=== PATIENT | male | born 1965 | race Caucasian/White ===

== ENCOUNTER 2022-06-08 09:16 | Day surgery (SDC) | payer MEDICARE, MEDICAID, SELFPAY ==
[2022-04-13 14:18] VITALS: BMI 34.2
[2022-05-05 13:59] VITALS: BMI 32.8
--- NOTE | 2022-06-07 14:06 | HO.ANESPROP2 ---
Documented by User: Malena Campa NP 06/07/22 14:07 HPI - Anesthesia Eval Consult details Narrative: 57yo M for Left AV Fistula Creation ESRD with HD PRN opioids Currently in rehab for LE fracture/falls PMFSH Past Medical History Medical History (Updated 06/07/22 @ 09:02 by Diane Jean, RN) Amputation of left great toe Anxiety and depression Arthritis Chronic diastolic heart failure with preserved ejection fraction Dialysis patient ESRD (end stage renal disease) on dialysis GERD (gastroesophageal reflux disease) Gout History of blood transfusion History of lower leg fracture HTN (hypertension) Hypothyroidism Low back pain STEPHAN (obstructive sleep apnea) Peripheral neuropathy Personal history of COVID-19 Rheumatoid arthritis Type 2 diabetes mellitus Surgical History Surgical History (Updated 04/13/22 @ 14:12 by Poly Zavala RN) History of bilateral carpal tunnel release Hx of colonoscopy Hx of elbow surgery Social History Social History Are you a primary adult care manager to a significant other at home: No Patient Tobacco Use Status: Former Tobacco user Quit Date: 1996 Tobacco use type: Cigarette Have you been hit, kicked, punched, or otherwise hurt by someone within the past year? If so, by whom?: No Are you DNR?: No Advance Directives: No (will bring dos) Advance Directives Information Provided: Yes Advance Directives on File: No Recently lost weight without trying: No Meds Allergies Allergy/AdvReac Type Severity Reaction Status Date / Time albuterol Allergy Severe Hives Verified 04/13/22 14:15 allopurinol Allergy Unknown Verified 05/05/22 13:45 liraglutide [From Victoza] AdvReac Intermediate Diarrhea Verified 04/13/22 14:15 Home Medications Medication Instructions Recorded Confirmed Last Taken Type Humalog U-100 Insulin subcut TIDAC 04/12/22 Unknown History Lidocaine Pain Relief 04/12/22 Unknown History acetaminophen 325 mg tablet 650 mg PO Q6H PRN Pain 04/12/22 04/12/22 Unknown History aspirin 81 mg chewable tablet 81 mg PO DAILY 04/12/22 04/12/22 Unknown History carvedilol 3.125 mg tablet 3.125 mg PO BID 04/12/22 05/05/22 06/08/22 History cholecalciferol (vitamin D3) 25 25 mcg PO DAILY 04/12/22 04/12/22 Unknown History mcg (1,000 unit) capsule (Vitamin D3) dextrose 40 % oral gel (Glutose-15) PO 04/12/22 Unknown History escitalopram oxalate 10 mg tablet 10 mg PO DAILY 04/12/22 04/12/22 06/08/22 History (Lexapro) febuxostat 40 mg tablet 40 mg PO BEDTIME 04/12/22 05/05/22 Unknown History fluticasone propionate 50 inhalation 04/12/22 Unknown History mcg/actuation blister powder for inhalation fluticasone propionate 50 intranasal 04/12/22 Unknown History mcg/actuation nasal spray,suspension folic acid 1 mg tablet 1 mg PO 6XW 04/12/22 05/05/22 Unknown History gabapentin 300 mg capsule 300 mg PO TID 04/12/22 05/05/22 06/08/22 History insulin glargine 100 unit/mL 15 unit subcut BEDTIME 04/12/22 05/05/22 Unknown History subcutaneous solution (Lantus U-100 Insulin) isosorbide mononitrate 30 mg 30 mg PO DAILY 04/12/22 05/05/22 06/08/22 History tablet,extended release 24 hr latanoprost 0.005 % eye drops 1 drp ophthalmic (eye) BEDTIME 04/12/22 05/05/22 Unknown History levothyroxine 50 mcg tablet 50 mcg PO DAILY 04/12/22 04/12/22 06/08/22 History loratadine 10 mg tablet (Claritin) 10 mg PO DAILY 04/12/22 04/12/22 Unknown History lorazepam 0.5 mg tablet mg 04/12/22 Unknown History midodrine 5 mg tablet 5 mg PO TID PRN Hypotension 04/12/22 05/05/22 Unknown History multivitamin 1 tab PO DAILY 04/12/22 Unknown History naloxone 0.4 mg/mL injection mg PRN Opioid Overdose 04/12/22 Unknown History solution nitroglycerin 0.3 mg sublingual 0.3 mg sublingual .Q5MINS PRN 04/12/22 05/05/22 Unknown History tablet (Nitrostat) Chest Pain oxycodone 5 mg tablet 5 mg PO Q12H PRN Pain 04/12/22 05/05/22 Unknown History pantoprazole 40 mg tablet,delayed 40 mg PO .AFTERNOON 04/12/22 05/05/22 Unknown History release (Protonix) patiromer calcium sorbitex 8.4 8.4 g PO .Q Sunday04/12/22 05/05/22 Unknown History gram oral powder packet (Veltassa) polyethylene glycol 3350 17 g 04/12/22 Unknown History gram/dose oral powder sennosides 8.6 mg capsule 8.6 mg PO BID 04/12/22 04/12/22 Unknown History sevelamer carbonate 800 mg tablet mg 04/12/22 Unknown History (Renvela) simethicone 40 mg/0.6 mL oral 04/12/22 Unknown History drops,suspension thiamine HCl (vitamin B1) 100 mg 100 mg PO DAILY 04/12/22 Unknown History tablet (Vitamin B-1) tizanidine 4 mg capsule (Zanaflex) 4 mg PO TID PRN Pain 04/12/22 04/12/22 Unknown History tramadol 50 mg tablet mg 04/12/22 04/12/22 Unknown History Exam Exam Date and Time: June 07, 2022 1406 Height,Weight and Vital Signs: Height 5 ft 7 in Weight 94.982 kg Assessment and Plan Assessment Anesthesia Assessment: Chart Reviewed Documented by User: Michell Pena MD 06/08/22 10:32 [facility] Past Medical History Medical History (Updated 06/07/22 @ 09:02 by Diane Jean RN) Amputation of left great toe Anxiety and depression Arthritis Chronic diastolic heart failure with preserved ejection fraction Dialysis patient ESRD (end stage renal disease) on dialysis GERD (gastroesophageal reflux disease) Gout History of blood transfusion History of lower leg fracture HTN (hypertension) Hypothyroidism Low back pain STEPHAN (obstructive sleep apnea) Peripheral neuropathy Personal history of COVID-19 Rheumatoid arthritis Type 2 diabetes mellitus Family History Family history of problems with anesthesia: No Surgical History Surgical History (Updated 04/13/22 @ 14:12 by Poly Zavala RN) History of bilateral carpal tunnel release Hx of colonoscopy Hx of elbow surgery History of Problems with Anesthesia: No Social History Social History Are you a primary adult care manager to a significant other at home: No Patient Tobacco Use Status: Former Tobacco user Quit Date: 1996 Tobacco use type: Cigarette Have you been hit, kicked, punched, or otherwise hurt by someone within the past year? If so, by whom?: No Are you DNR?: No Advance Directives: No (will bring dos) Advance Directives Information Provided: Yes Advance Directives on File: No Recently lost weight without trying: No Meds Allergies Allergy/AdvReac Type Severity Reaction Status Date / Time albuterol Allergy Severe Hives Verified 04/13/22 14:15 allopurinol Allergy Unknown Verified 05/05/22 13:45 liraglutide [From Victoza] AdvReac Intermediate Diarrhea Verified 04/13/22 14:15 Home Medications Medication Instructions Recorded Confirmed Last Taken Type Humalog U-100 Insulin subcut TIDAC 04/12/22 Unknown History Lidocaine Pain Relief 04/12/22 Unknown History acetaminophen 325 mg tablet 650 mg PO Q6H PRN Pain 04/12/22 04/12/22 Unknown History aspirin 81 mg chewable tablet 81 mg PO DAILY 04/12/22 04/12/22 Unknown History carvedilol 3.125 mg tablet 3.125 mg PO BID 04/12/22 05/05/22 06/08/22 History cholecalciferol (vitamin D3) 25 25 mcg PO DAILY 04/12/22 04/12/22 Unknown History mcg (1,000 unit) capsule (Vitamin D3) dextrose 40 % oral gel (Glutose-15) PO 04/12/22 Unknown History escitalopram oxalate 10 mg tablet 10 mg PO DAILY 04/12/22 04/12/22 06/08/22 History (Lexapro) febuxostat 40 mg tablet 40 mg PO BEDTIME 04/12/22 05/05/22 Unknown History fluticasone propionate 50 inhalation 04/12/22 Unknown History mcg/actuation blister powder for inhalation fluticasone propionate 50 intranasal 04/12/22 Unknown History mcg/actuation nasal spray,suspension folic acid 1 mg tablet 1 mg PO 6XW 04/12/22 05/05/22 Unknown History gabapentin 300 mg capsule 300 mg PO TID 04/12/22 05/05/22 06/08/22 History insulin glargine 100 unit/mL 15 unit subcut BEDTIME 04/12/22 05/05/22 Unknown History subcutaneous solution (Lantus U-100 Insulin) isosorbide mononitrate 30 mg 30 mg PO DAILY 04/12/22 05/05/22 06/08/22 History tablet,extended release 24 hr latanoprost 0.005 % eye drops 1 drp ophthalmic (eye) BEDTIME 04/12/22 05/05/22 Unknown History levothyroxine 50 mcg tablet 50 mcg PO DAILY 04/12/22 04/12/22 06/08/22 History loratadine 10 mg tablet (Claritin) 10 mg PO DAILY 04/12/22 04/12/22 Unknown History lorazepam 0.5 mg tablet mg 04/12/22 Unknown History midodrine 5 mg tablet 5 mg PO TID PRN Hypotension 04/12/22 05/05/22 Unknown History multivitamin 1 tab PO DAILY 04/12/22 Unknown History naloxone 0.4 mg/mL injection mg PRN Opioid Overdose 04/12/22 Unknown History solution nitroglycerin 0.3 mg sublingual 0.3 mg sublingual .Q5MINS PRN 04/12/22 05/05/22 Unknown History tablet (Nitrostat) Chest Pain oxycodone 5 mg tablet 5 mg PO Q12H PRN Pain 04/12/22 05/05/22 Unknown History pantoprazole 40 mg tablet,delayed 40 mg PO .AFTERNOON 04/12/22 05/05/22 Unknown History release (Protonix) patiromer calcium sorbitex 8.4 8.4 g PO .Q Sunday04/12/22 05/05/22 Unknown History gram oral powder packet (Veltassa) polyethylene glycol 3350 17 g 04/12/22 Unknown History gram/dose oral powder sennosides 8.6 mg capsule 8.6 mg PO BID 04/12/22 04/12/22 Unknown History sevelamer carbonate 800 mg tablet mg 04/12/22 Unknown History (Renvela) simethicone 40 mg/0.6 mL oral 04/12/22 Unknown History drops,suspension thiamine HCl (vitamin B1) 100 mg 100 mg PO DAILY 04/12/22 Unknown History tablet (Vitamin B-1) tizanidine 4 mg capsule (Zanaflex) 4 mg PO TID PRN Pain 04/12/22 04/12/22 Unknown History tramadol 50 mg tablet mg 04/12/22 04/12/22 Unknown History Exam Airway Mallampati Class: III TM Dist: >3cm Neck ROM: Full Assessment and Plan Assessment Anesthesia Assessment: Anesthesia Plan Discussed Final Anesthetic Review Family History of Problems with Anesthesia: No History of Problems with Anesthesia: No NPO: Yes ASA Class: IV Final Preanesthetic Review: No Changes in Pt Med Stat, Meds/Allgs Chart Reviewed, Consent Obtained/Reviewed and Anes Risks/Benef Reviewed Patient Risk: Intermediate Procedure Risk: Low Anesthetic Plan Anesthetic Plan: MAC: Disposition: Standard PACU
[2022-06-08] VITALS (10 sets, daily range): BP systolic 89–143; BP diastolic 41–71; PULSE 69–80; RESP 13–16; TEMP 35.9–37.2; O2SAT 95–100
[2022-06-08 09:56] LABS: Anion Gap 19 (12-20); Carbon Dioxide 25 mmol/L (22-29); Chloride 97 mmol/L (96-108); Potassium 5.3 mmol/L (3.3-5.1); Sodium 136 mmol/L (135-145)
[2022-06-08 09:58] LABS: Glucose, Whole Blood 146 mg/dL (60-115)
[2022-06-08] MEDS: 0.9 % Sodium Chloride 1,000 ML 50 ML IVCONT (10:20)
--- NOTE | 2022-06-08 12:39 | P.OP_ITS ---
Operative Note Operative Note Date of Service: 06/08/22 Narrative: Pre-op Dx: ESRD Post-op Dx: ESRD Operation: Left arm brachiobasilic AV fistula Surgeon: Sonido Blake MD Anesthesia: MAC, local Procedure: The patient was placed on the OR table in a supine position. Lower extremity compression devices were placed. The anesthesiologist administered the pre- operative antibiotic. An US of the veins was performed on the left arm. After successful induction of MAC anesthesia, the left arm was prepped and draped in a sterile fashion. A surgical timeout took place. Local anesthetic was used. An incision was made below the crease of the elbow on the forearm. The Bovie electrocautery was used to dissect through the subcutaneous tissue. The basilic vein was isolated and skeletonized. Small branches were ligated and divided with 4-0 silk ties. The cephalic vein was too tiny and it was ligated. The basilic vein was ligated and divided. It was distended using hep-saline and dilators. The brachial artery was identified, dissected and skeletonized. There was a fare amount of calcification. Small branches were ligated and divided using 4-0 silk ties. Proximal and distal control was achieved. An arteriotomy was made and the basilic vein was directly sewn to the brachial artery using a 6-0 Prolene in a running fashion. The clamps were released and a pulsatile thrill was noted. Hemostasis was maintained. The incision was closed in layers. Surgical glue was applied. The hand was perfused. The patient tolerated the procedure well. All instrument, sponge and needle counts were correct at the end of the case.
== END 2022-06-08 14:37 | disposition home or self-care (01) ==
PROVIDERS: Nurse Practitioner; Visit Provider Transplant Surgery
PROC: (CPT 36821; principal; 2022-06-08 10:10)
DX: E11.22 Type 2 diabetes mellitus with diabetic chronic kidney disease (principal); I13.2 Hypertensive heart and chronic kidney disease with heart failure and with stage 5 chronic kidney disease, or end stage renal disease; I50.32 Chronic diastolic (congestive) heart failure; N18.6 End stage renal disease; Z99.2 Dependence on renal dialysis; Z79.4 Long term (current) use of insulin; F41.8 Other specified anxiety disorders; K21.9 Gastro-esophageal reflux disease without esophagitis; E03.9 Hypothyroidism, unspecified; G62.9 Polyneuropathy, unspecified; G47.33 Obstructive sleep apnea (adult) (pediatric); M54.50 Low back pain, unspecified; M06.9 Rheumatoid arthritis, unspecified; Z79.82 Long term (current) use of aspirin; Z79.51 Long term (current) use of inhaled steroids; Z79.899 Other long term (current) drug therapy; Z88.8 Allergy status to other drugs, medicaments and biological substances; Z89.412 Acquired absence of left great toe; Z87.891 Personal history of nicotine dependence; Z86.16 Personal history of COVID-19
CPT/HCPCS: 36821; 36415; 80051; 82947; J0690; J1100; J2250; J2370; J2405; J3010; J3370

== ENCOUNTER 2022-08-24 08:35 | Day surgery (SDC) | payer MEDICARE, MEDICAID, SELFPAY ==
--- NOTE | 2022-08-23 12:21 | HO.ANESPROP2 ---
Documented by User: Malena Campa NP 08/23/22 12:23 HPI - Anesthesia Eval Consult details Narrative: 57yo M for Left Basilic Vein Transposition s/p Left AV fistula creation 05/2022 with MAC ESRD with HD on MWF (L chest port) [facility] Past Medical History Medical History (Updated 06/07/22 @ 09:02 by Diane Jean, RN) Amputation of left great toe Anxiety and depression Arthritis Chronic diastolic heart failure with preserved ejection fraction Dialysis patient ESRD (end stage renal disease) on dialysis GERD (gastroesophageal reflux disease) Gout History of blood transfusion History of lower leg fracture HTN (hypertension) Hypothyroidism Low back pain STEPHAN (obstructive sleep apnea) Peripheral neuropathy Personal history of COVID-19 Rheumatoid arthritis Type 2 diabetes mellitus Family History Family history of problems with anesthesia: No Surgical History Surgical History (Updated 04/13/22 @ 14:12 by Poly Zavala, HEATHER) History of bilateral carpal tunnel release Hx of colonoscopy Hx of elbow surgery History of Problems with Anesthesia: No Social History Social History Are you a primary healthcare representative to a significant other at home: No Patient Tobacco Use Status: Former Tobacco user Quit Date: 1996 Tobacco use type: Cigarette Years Smoked: 25 (1ppd) Use of substances other than those prescribed or required for medical reasons: No Are you DNR?: No Advance Directives: No Advance Directives Information Provided: Yes Meds Allergies Allergy/AdvReac Type Severity Reaction Status Date / Time albuterol Allergy Severe Hives Verified 04/13/22 14:15 allopurinol Allergy Unknown Verified 05/05/22 13:45 liraglutide [From Victoza] AdvReac Intermediate Diarrhea Verified 04/13/22 14:15 Home Medications Medication Instructions Recorded Confirmed Last Taken Type Humalog U-100 Insulin subcut TIDAC 04/12/22 Unknown History Lidocaine Pain Relief 04/12/22 Unknown History acetaminophen 325 mg tablet 650 mg PO Q6H PRN Pain 04/12/22 04/12/22 Unknown History aspirin 81 mg chewable tablet 81 mg PO DAILY 04/12/22 04/12/22 Unknown History carvedilol 3.125 mg tablet 3.125 mg PO BID 04/12/22 05/05/22 06/08/22 History cholecalciferol (vitamin D3) 25 25 mcg PO DAILY 04/12/22 04/12/22 Unknown History mcg (1,000 unit) capsule (Vitamin D3) dextrose 40 % oral gel (Glutose-15) PO 04/12/22 Unknown History escitalopram oxalate 10 mg tablet 10 mg PO DAILY 04/12/22 04/12/22 06/08/22 History (Lexapro) febuxostat 40 mg tablet 40 mg PO BEDTIME 04/12/22 05/05/22 Unknown History fluticasone propionate 50 inhalation 04/12/22 Unknown History mcg/actuation blister powder for inhalation fluticasone propionate 50 intranasal 04/12/22 Unknown History mcg/actuation nasal spray,suspension folic acid 1 mg tablet 1 mg PO 6XW 04/12/22 05/05/22 Unknown History gabapentin 300 mg capsule 300 mg PO TID 04/12/22 05/05/22 06/08/22 History insulin glargine 100 unit/mL 15 unit subcut BEDTIME 04/12/22 05/05/22 Unknown History subcutaneous solution (Lantus U-100 Insulin) isosorbide mononitrate 30 mg 30 mg PO DAILY 04/12/22 05/05/22 06/08/22 History tablet,extended release 24 hr latanoprost 0.005 % eye drops 1 drp ophthalmic (eye) BEDTIME 04/12/22 05/05/22 Unknown History levothyroxine 50 mcg tablet 50 mcg PO DAILY 04/12/22 04/12/22 06/08/22 History loratadine 10 mg tablet (Claritin) 10 mg PO DAILY 04/12/22 04/12/22 Unknown History lorazepam 0.5 mg tablet mg 04/12/22 Unknown History midodrine 5 mg tablet 5 mg PO TID PRN Hypotension 04/12/22 05/05/22 Unknown History multivitamin 1 tab PO DAILY 04/12/22 Unknown History naloxone 0.4 mg/mL injection mg PRN Opioid Overdose 04/12/22 Unknown History solution nitroglycerin 0.3 mg sublingual 0.3 mg sublingual .Q5MINS PRN 04/12/22 05/05/22 Unknown History tablet (Nitrostat) Chest Pain oxycodone 5 mg tablet 5 mg PO Q12H PRN Pain 04/12/22 05/05/22 Unknown History pantoprazole 40 mg tablet,delayed 40 mg PO .AFTERNOON 04/12/22 05/05/22 Unknown History release (Protonix) patiromer calcium sorbitex 8.4 8.4 g PO .Q Sunday04/12/22 05/05/22 Unknown History gram oral powder packet (Veltassa) polyethylene glycol 3350 17 g 04/12/22 Unknown History gram/dose oral powder sennosides 8.6 mg capsule 8.6 mg PO BID 04/12/22 04/12/22 Unknown History sevelamer carbonate 800 mg tablet mg 04/12/22 Unknown History (Renvela) simethicone 40 mg/0.6 mL oral 04/12/22 Unknown History drops,suspension thiamine HCl (vitamin B1) 100 mg 100 mg PO DAILY 04/12/22 Unknown History tablet (Vitamin B-1) tizanidine 4 mg capsule (Zanaflex) 4 mg PO TID PRN Pain 04/12/22 04/12/22 Unknown History tramadol 50 mg tablet mg 04/12/22 04/12/22 Unknown History Exam Exam Date and Time: August 23, 2022 1221 Height,Weight and Vital Signs: Weight 104.78 kg Assessment and Plan Assessment Anesthesia Assessment: Chart Reviewed Final Anesthetic Review Family History of Problems with Anesthesia: No History of Problems with Anesthesia: No Documented by User: Nai Steinberg MD 08/24/22 12:25 PMF Active Problems Active Problems: Dialysed yesterday 08/23/22 Past Medical History Medical History (Updated 06/07/22 @ 09:02 by Diane Jean RN) Amputation of left great toe Anxiety and depression Arthritis Chronic diastolic heart failure with preserved ejection fraction Dialysis patient ESRD (end stage renal disease) on dialysis GERD (gastroesophageal reflux disease) Gout History of blood transfusion History of lower leg fracture HTN (hypertension) Hypothyroidism Low back pain STEPHAN (obstructive sleep apnea) Peripheral neuropathy Personal history of COVID-19 Rheumatoid arthritis Type 2 diabetes mellitus Surgical History Surgical History (Updated 04/13/22 @ 14:12 by Poly Zavala RN) History of bilateral carpal tunnel release Hx of colonoscopy Hx of elbow surgery Social History Social History Are you a primary healthcare representative to a significant other at home: No Patient Tobacco Use Status: Former Tobacco user Quit Date: 1996 Tobacco use type: Cigarette Years Smoked: 25 (1ppd) Use of substances other than those prescribed or required for medical reasons: No Are you DNR?: No Advance Directives: No Advance Directives Information Provided: Yes Meds Allergies Allergy/AdvReac Type Severity Reaction Status Date / Time albuterol Allergy Severe Hives Verified 04/13/22 14:15 allopurinol Allergy Unknown Verified 05/05/22 13:45 liraglutide [From Victoza] AdvReac Intermediate Diarrhea Verified 04/13/22 14:15 Home Medications Medication Instructions Recorded Confirmed Last Taken Type Humalog U-100 Insulin subcut TIDAC 04/12/22 Unknown History Lidocaine Pain Relief 04/12/22 Unknown History acetaminophen 325 mg tablet 650 mg PO Q6H PRN Pain 04/12/22 04/12/22 Unknown History aspirin 81 mg chewable tablet 81 mg PO DAILY 04/12/22 04/12/22 Unknown History carvedilol 3.125 mg tablet 3.125 mg PO BID 04/12/22 05/05/22 06/08/22 History cholecalciferol (vitamin D3) 25 25 mcg PO DAILY 04/12/22 04/12/22 Unknown History mcg (1,000 unit) capsule (Vitamin D3) dextrose 40 % oral gel (Glutose-15) PO 04/12/22 Unknown History escitalopram oxalate 10 mg tablet 10 mg PO DAILY 04/12/22 04/12/22 06/08/22 History (Lexapro) febuxostat 40 mg tablet 40 mg PO BEDTIME 04/12/22 05/05/22 Unknown History fluticasone propionate 50 inhalation 04/12/22 Unknown History mcg/actuation blister powder for inhalation fluticasone propionate 50 intranasal 04/12/22 Unknown History mcg/actuation nasal spray,suspension folic acid 1 mg tablet 1 mg PO 6XW 04/12/22 05/05/22 Unknown History gabapentin 300 mg capsule 300 mg PO TID 04/12/22 05/05/22 06/08/22 History insulin glargine 100 unit/mL 15 unit subcut BEDTIME 04/12/22 05/05/22 Unknown History subcutaneous solution (Lantus U-100 Insulin) isosorbide mononitrate 30 mg 30 mg PO DAILY 04/12/22 05/05/22 06/08/22 History tablet,extended release 24 hr latanoprost 0.005 % eye drops 1 drp ophthalmic (eye) BEDTIME 04/12/22 05/05/22 Unknown History levothyroxine 50 mcg tablet 50 mcg PO DAILY 04/12/22 04/12/22 06/08/22 History loratadine 10 mg tablet (Claritin) 10 mg PO DAILY 04/12/22 04/12/22 Unknown History lorazepam 0.5 mg tablet mg 04/12/22 Unknown History midodrine 5 mg tablet 5 mg PO TID PRN Hypotension 04/12/22 05/05/22 Unknown History multivitamin 1 tab PO DAILY 04/12/22 Unknown History naloxone 0.4 mg/mL injection mg PRN Opioid Overdose 04/12/22 Unknown History solution nitroglycerin 0.3 mg sublingual 0.3 mg sublingual .Q5MINS PRN 04/12/22 05/05/22 Unknown History tablet (Nitrostat) Chest Pain oxycodone 5 mg tablet 5 mg PO Q12H PRN Pain 04/12/22 05/05/22 Unknown History pantoprazole 40 mg tablet,delayed 40 mg PO .AFTERNOON 04/12/22 05/05/22 Unknown History release (Protonix) patiromer calcium sorbitex 8.4 8.4 g PO .Q Sunday04/12/22 05/05/22 Unknown History gram oral powder packet (Veltassa) polyethylene glycol 3350 17 g 04/12/22 Unknown History gram/dose oral powder sennosides 8.6 mg capsule 8.6 mg PO BID 04/12/22 04/12/22 Unknown History sevelamer carbonate 800 mg tablet mg 04/12/22 Unknown History (Renvela) simethicone 40 mg/0.6 mL oral 04/12/22 Unknown History drops,suspension thiamine HCl (vitamin B1) 100 mg 100 mg PO DAILY 04/12/22 Unknown History tablet (Vitamin B-1) tizanidine 4 mg capsule (Zanaflex) 4 mg PO TID PRN Pain 04/12/22 04/12/22 Unknown History tramadol 50 mg tablet mg 04/12/22 04/12/22 Unknown History Exam Height,Weight and Vital Signs: Height 5 ft 7 in Weight 104.78 kg Vital Signs Temp Pulse Resp BP Pulse Ox O2 Del Method 08/24/22 09:15 97.3 F 72 18 125/49 L 100 Room Air Pertinent Lab Results Pertinent Lab Results: Lab Results 08/24/22 08/24/22 Range/Units 09:00 09:01 Sodium 139 (135-145) mmol/L Potassium 5.3 H (3.3-5.1) mmol/L Chloride 99 (96-108) mmol/L Carbon Dioxide 24 (22-29) mmol/L Anion Gap 21 H (12-20) POC Glucose 179 H (60-115) mg/dL Airway Mallampati Class: III TM Dist: >3cm (Short neck) Neck ROM: Full Loose/Missing/Broken Teeth: Yes (Some missing. Denies loose or broken) Heart: RRR Lungs: CTAB Assessment and Plan Assessment Anesthesia Assessment: Anesthesia Plan Discussed Final Anesthetic Review NPO: Yes ASA Class: IV Final Preanesthetic Review: No Changes in Pt Med Stat, Meds/Allgs Chart Reviewed, Consent Obtained/Reviewed and Anes Risks/Benef Reviewed Patient Risk: High Procedure Risk: Low Assessment/Block/Sedation in SS: Assess/Block/Sedation-SS Anesthetic Plan Anesthetic Plan: MAC: Disposition: Standard PACU
[2022-08-24 09:15] VITALS: BP 125/49; PULSE 72; RESP 18; TEMP 36.3; O2SAT 100
[2022-08-24 09:25] LABS: Anion Gap 21 (12-20); Carbon Dioxide 24 mmol/L (22-29); Chloride 99 mmol/L (96-108); Potassium 5.3 mmol/L (3.3-5.1); Sodium 139 mmol/L (135-145)
[2022-08-24] MEDS: 0.9 % Sodium Chloride 1,000 ML 50 ML IVCONT (09:35)
[2022-08-24 10:11] LABS: Glucose, Whole Blood 179 mg/dL (60-115)
[2022-08-24 13:19] VITALS: BP 118/48; PULSE 71; RESP 16; TEMP 36.6; O2SAT 100
[2022-08-24] MEDS: Acetaminophen 325 MG TABLET 650 MG PO (13:25)
[2022-08-24] MEDS: oxyCODONE HCl Immed Release 5 MG TABLET PO (13:26)
[2022-08-24] MEDS: fentaNYL citrate/PF 100 MCG/2 ML VIAL 25 MCG IVPUSH ×2 (13:28→13:33)
[2022-08-24 13:31] VITALS: BP 140/47; PULSE 70; RESP 16; O2SAT 100
[2022-08-24 13:33] VITALS: BP 136/53; PULSE 70; RESP 16; O2SAT 100
--- NOTE | 2022-08-24 13:37 | P.OP_ITS ---
Operative Note Operative Note Date of Service: 08/24/22 Narrative: Pre-op Dx: ESRD Post-op Dx: ESRD Operation: Left arm basilic vein transposition Surgeon: Sonido Blake MD Anesthesia: MAC, local Procedure: The patient was placed on the OR table in a supine position. Lower extremity compression devices were placed. The anesthesiologist administered the pre- operative antibiotic. An US of the upper arm cephalic and basilic veins was performed on the left arm. After successful induction of MAC anesthesia, the left arm was prepped and draped in a sterile fashion. A surgical timeout took place. Local anesthetic was used. An incision was made over the upper arm basilic vein, above the elbow. The Bovie electrocautery was used to dissect through the subcutaneous tissue. The basilic vein was isolated and skeletonized. Vessel loops were placed around it. Another incisions was made along the medial aspect of the upper arm, over the basilic vein and closer to the axilla. The entire basilic vein was dissected out. Branches were ligated and divided with 3-0 silk ties. The basilic vein was ligated and divided just above the medial epicondyle of the elbow. The basilic vein was marked and then tunneled along the bicep. The brachial artery was dissected out, through the incision just above the elbow. Proximal and distal control was obtained. The cut end of the basilic vein was anastomosed to the brachial artery using a 6-0 Prolene suture, in a running fashion. The clamps were released and a thrill was noted. Hemostasis was maintained. The incisions were closed in layers. Surgical glue was applied. The hand was well perfused. The patient tolerated the procedure well. All instrument, sponge and needle counts were correct at the end of the case.
[2022-08-24 13:46] VITALS: BP 117/42; PULSE 71; RESP 16; O2SAT 100
== END 2022-08-24 14:35 | disposition home or self-care (01) ==
PROVIDERS: Nurse Practitioner; PCP Nurse Practitioner Family; Visit Provider Transplant Surgery
PROC: (CPT 36819; principal; 2022-08-24 10:30)
DX: E11.22 Type 2 diabetes mellitus with diabetic chronic kidney disease (principal); I13.2 Hypertensive heart and chronic kidney disease with heart failure and with stage 5 chronic kidney disease, or end stage renal disease; N18.6 End stage renal disease; I50.32 Chronic diastolic (congestive) heart failure; Z99.2 Dependence on renal dialysis; G47.33 Obstructive sleep apnea (adult) (pediatric); Z79.4 Long term (current) use of insulin; Z79.51 Long term (current) use of inhaled steroids; Z79.82 Long term (current) use of aspirin; Z79.899 Other long term (current) drug therapy; Z88.8 Allergy status to other drugs, medicaments and biological substances; Z89.412 Acquired absence of left great toe; Z87.891 Personal history of nicotine dependence
CPT/HCPCS: 36819; 36415; 80051; 82947; J0690; J2250; J2795; J3010; J3370